=== PATIENT | male | born 1955 | race Caucasian/White ===

== ENCOUNTER → 2016-10-07 | Outpatient (CLI) | payer BC ==
[~2016-10-07] MED LIST: FLX10 PO; OXYC1TAB3 PO; SIMV20TA2 PO; [UNRECOGNIZED DRUG - REMARK]
--- NOTE | 2016-10-07 11:14 | DIAGNOSTIC IMAGING REPORT ---
LEFT WRIST 4 VIEWS HISTORY: M25.532 Wrist pain, acute, [id number] COMPARISON: None. FINDINGS: There is no fracture or dislocation. Soft tissues are unremarkable. No radiopaque foreign bodies. IMPRESSION: No fractures. Electronically signed by: Jaden Estrella M.D. 10/07/2016 11:13 AM Dictated Date/Time: 10/07/2016 11:10 AM
== END | disposition home or self-care (01) ==
LOC: C.RAD1850 10:44
PROVIDERS: ATTEND Internal Medicine
DX: M25.532 Pain in left wrist (principal)

== ENCOUNTER → 2017-12-13 | Day surgery (SDC) | payer BC, OTHER ==
[2017-11-29 13:36] VITALS: Ht 175.3 cm; Wt 100.0 kg
[~2017-12-13] VITALS: Ht 175.3 cm; Wt 100.0 kg
[~2017-12-13] MED LIST changes: -FLX10 PO; +GLUCTAB32 PO; +LIDOCAINE HCL 2% 2 ML VIAL (20MG/ML) ONE; +LOSARTAN POTASSIUM PO; +MIDAZOLAM HCL 1 MG/ML 2ML VIAL ONE; +ONDANSETRON INJ 2 MG/ML 2 ML VIAL ONE; -OXYC1TAB3 PO; +PROPOFOL IV EMULSION 10 MG/ML 20 ML VIAL IV ONE; +ROSU40TA PO; -SIMV20TA2 PO; +SODIUM CHLORIDE 0.9% 500ML 500 ML IV ONE; -[UNRECOGNIZED DRUG - REMARK]
[2017-12-13 08:10] VITALS: TEMP 36.5
--- NOTE | 2017-12-13 08:50 | Endo History and Physical ---
History & Physical Date of Service: Dec 13, 2017. Chief Complaint: screening Referring Physician: Dr. Kaiser History of Present Illness 62 yo CM who presents for screening colonoscopy. Past Surgical History Hx Cardiac Surgery: No Hx Internal Defibrillator: No Hx Pacemaker: No Hx Abdominal Surgery: No Hx of Implantable Prosthesis: No Hx Post-Op Nausea and Vomiting: No Hx Cancer Surgery: No Hx Thoracic Surgery: No Hx Orthopedic: Yes (BILAT CARPAL TUNNEL) Hx Urinary Tract Surgery: No Family History None Social History Smoking Status: Former Smoker Hx Substance Use: No Hx Alcohol Use: Yes (BEER 2-3/DAY) Allergies Coded Allergies: ZABRINA Inhibitors (Verified Allergy, Unknown, RASH, 11/29/17) Current Medications Reported Home Medications Medications Dose Route/Sig Max Daily Dose Days Date Category Glucosamine Chondroitin & (Lmpickerqxq-Dmsuofepsml-Fg Cho) 1 Tab Tab 1 Tab PO BID 11/29/17 Reported Crestor (Rosuvastatin Calcium) 40 Mg Tab 40 Mg PO QPM 11/29/17 Reported [Losartan Potassium] 1 Tab PO QAM 11/29/17 Reported Vital Signs Weight (Kilograms): 100 Height (Feet): 5 Height (Inches): 9 Date Time Temp Pulse Resp B/P (MAP) Pulse Ox O2 Delivery O2 Flow Rate FiO2 12/13/17 08:10 36.5 70 24 172/96 (121) 94 Room Air Physical Exam General Appearance: WD/WN, no apparent distress Respiratory/Chest: Auscultation: breath sounds normal Cardiovascular: Heart Auscultation: RRR Abdomen: Bowel Sounds: normal Inspection & Palpation: soft, non-distended, no tenderness, guarding & rebound Assessment and Plan Assessment: 62 yo CM who presents for screening colonoscopy. Plan: Proceed with Colonoscopy.
--- NOTE | 2017-12-13 09:13 | Discharge Instructions ---
Endoscopy Patient Instructions Date / Procedure(s) Performed Dec 13, 2017. Colonoscopy Allergy Information Coded Allergies: ZABRINA Inhibitors (Verified Allergy, Unknown, RASH, 11/29/17) Discharge Date / Findings Dec 13, 2017. Internal hemorrhoids Medication Instructions OK to resume all medications today as prescribed Reported Home Medications Medications Dose Route/Sig Max Daily Dose Days Date Category Glucosamine Chondroitin & (Mbxulpuaprt-Plprdovefgh-Zz Cho) 1 Tab Tab 1 Tab PO BID 11/29/17 Reported Crestor (Rosuvastatin Calcium) 40 Mg Tab 40 Mg PO QPM 11/29/17 Reported [Losartan Potassium] 1 Tab PO QAM 11/29/17 Reported Provider Instructions Activity Restrictions - No exercising or heavy lifting for 24 hours. - Do not drink alcohol the day of the procedure. - Do not drive a car or operate machinery until the day after the procedure. - Do not make any important decisions or sign important papers in 24 hours after the procedure. Following Day: - Return to full activity which may include returning to work/school. Diet Start your diet with liquids and light foods (jello, soup, juice, toast). Then eat your usual diet if not nauseated. Treatment For Common After Affects For mild abdominal pain, bloating, or excessive gas: - Rest - Eat lightly - Lie on right side Follow-Up Information Follow-up with Dr. Kaiser as scheduled Anesthesia Information What You Should Know You have had a procedure that required some medicine to reduce anxiety and discomfort. This treatment is called moderate sedation. After receiving the treatment, you may be sleepy, but you will be able to breathe on your own. The effects of the treatment may last for several hours. Follow these instructions along with Activity/Diet recommendations noted above: * Do NOT do anything where dizziness or clumsiness would be dangerous. * Rest quietly at home today, then you can be up and about tomorrow. * Have a responsible person stay with you the rest of today. * You may have had an I.V. today. If so, you may take the dressing off later today. Recommendations Call your doctor if: * Trouble breathing * Continuous vomiting for more than 24 hours * Temperature above 101 degrees * Severe abdominal pain or bloating * Pain not relieved by pain medicine ordered * There is increased drainage or redness from any incision * A large amount of rectal bleeding greater than 2-3 tablespoons. (If you had a polyp/s removed or have hemorrhoids, a small amount of blood - from the rectum is to be expected.) * You have any unanswered questions or concerns. IN THE EVENT OF A SERIOUS EMERGENCY, GO TO THE NEAREST EMERGENCY ROOM Your discharge instructions were prepared by provider Ford Gutiérrez. Patient Instructions Signature Page Hunter Georges Patient (or Guardian) Signature/Date: I have read and understand the instructions given to me by my caregivers. Caregiver/RN/Doctor Signature/Date: The above-named patient and/or guardian has received patient instructions on this date. + Original Patient Signature Page (only) stays with chart. Please make copy for patient.
--- NOTE | 2017-12-13 09:20 | GI REPORT ---
Procedure Date: 12/13/2017 8:13 AM Procedure: Colonoscopy Indications: Screening for colorectal malignant neoplasm Medicines: Monitored Anesthesia Care Complications: No immediate complications. Estimated Blood Loss: Estimated blood loss: none. Procedure: Pre-Anesthesia Assessment: - Prior to the procedure, a History and Physical was performed, and patient medications and allergies were reviewed. The patient's tolerance of previous anesthesia was also reviewed. The risks and benefits of the procedure and the sedation options and risks were discussed with the patient. All questions were answered, and informed consent was obtained. Prior Anticoagulants: The patient has taken no previous anticoagulant or antiplatelet agents. ASA Grade Assessment: II - A patient with mild systemic disease. After reviewing the risks and benefits, the patient was deemed in satisfactory condition to undergo the procedure. After I obtained informed consent, the scope was passed under direct vision. Throughout the procedure, the patient's blood pressure, pulse, and oxygen saturations were monitored continuously. The scope was introduced through the anus and advanced to the terminal ileum. The colonoscopy was performed without difficulty. The patient tolerated the procedure well. The quality of the bowel preparation was good. The terminal ileum, ileocecal valve, appendiceal orifice, and rectum were photographed. Findings: The perianal and digital rectal examinations were normal. Non-bleeding internal hemorrhoids were found during retroflexion. The hemorrhoids were small. The exam was otherwise without abnormality. Impression: - Non-bleeding internal hemorrhoids. - The examination was otherwise normal. - No specimens collected. Recommendation: - Resume previous diet. - Continue present medications. - Repeat colonoscopy in 10 years for surveillance. - Return to primary care physician as previously scheduled. Ford Gutiérrez, DO 12/13/2017 9:19:50 AM This report has been signed electronically. Note Initiated On: 12/13/2017 8:13 AM I attest to the content of the Intraoperative Record and orders documented therein, exceptions below
--- NOTE | 2017-12-13 09:34 | Anesthesiology Progress Note ---
Anesthesia Post Op Note Date & Time Dec 13, 2017 at 09:33 Vital Signs Pain Intensity: 0 Vital Signs Past 12 Hours Date Time Temp Pulse Resp B/P (MAP) Pulse Ox O2 Delivery O2 Flow Rate FiO2 12/13/17 09:17 72 16 129/68 (88) 96 Nasal Cannula 2 12/13/17 08:10 36.5 70 24 172/96 (121) 94 Room Air Notes Mental Status: alert / awake / arousable, participated in evaluation Pt Amnestic to Procedure: Yes Nausea / Vomiting: adequately controlled Pain: adequately controlled Airway Patency, RR, SpO2: stable & adequate BP & HR: stable & adequate Hydration State: stable & adequate Anesthetic Complications: no major complications apparent
[2017-12-13 09:47] VITALS: BP 155/84; PULSE 61; O2SAT 96
== END | disposition home or self-care (01) ==
LOC: C.GI 07:42
PROVIDERS: ATTEND Internal Medicine
DX: Z12.11 Encounter for screening for malignant neoplasm of colon (principal); K64.8 Other hemorrhoids; K57.30 Diverticulosis of large intestine without perforation or abscess without bleeding; I10 Essential (primary) hypertension; Z87.891 Personal history of nicotine dependence